=== PATIENT | male | born 1990 | race African-American/Black ===

== ENCOUNTER 2021-08-26 13:48 | Emergency (ER) | payer MEDICAID ==
[~2021-08-26] VITALS: Ht 182.9 cm; Wt 87.3 kg
[2021-08-26 13:50] VITALS: BP 114/58
== END 2021-08-26 17:15 | disposition left against medical advice (07) ==
LOC: EMS 13:48
DX: R19.7 Diarrhea, unspecified (principal); R51.9 Headache, unspecified; Z53.21 Procedure and treatment not carried out due to patient leaving prior to being seen by health care provider